=== PATIENT | male | born 1970 | race Caucasian/White ===

== ENCOUNTER 2017-11-02 19:01 | Emergency (ER) | payer OTHER ==
[2017-11-02] MEDS ORDERED: Oxycodone/Acetaminophen 5/325 mg Tab PO STA (19:31)
[2017-11-02] MEDS ORDERED: Oxycodone/Acetaminophen 5/325 mg Tab ONE (19:35)
--- NOTE | 2017-11-02 19:36 | ED PDOC ---
HPI: Trauma/Fall - HPI Time Seen by Provider: 11/02/17 19:26 Chief Complaint (Nursing): Back Pain Chief Complaint (Provider): Left lower lateral rib injury History Per: Patient, EMS History/Exam Limitations: no limitations Onset/Duration Of Symptoms: Mins ([employer]) Additional Complaint(s): 47 year old male presents to the ED via EMS after he slipped in the shower prior to arrival with injury to the left lower lateral ribs. Patient reports pain inspiration to movement but denies SOB. Denies head, neck, or back injury. PMD: none - Fall Fall:Prior To Injury: Slipped Past Medical History Reviewed: Historical Data, Nursing Documentation, Vital Signs Vital Signs: Last Vital Signs Temp 98.2 F 11/02/17 19:05 Pulse 86 11/02/17 19:05 Resp 26 H 11/02/17 19:05 BP 152/110 H 11/02/17 19:05 Pulse Ox 99 11/02/17 19:44 - Medical History PMH: Arthritis (psoriatic arthritis) - Surgical History Surgical History: No Surg Hx - Family History Family History: States: Unknown Family Hx - Home Medications Home Medications: Ambulatory Orders Medication Instructions Recorded traMADol [Ultram] 50 mg PO Q8 #10 tab 11/02/17 - Allergies Allergies/Adverse Reactions: Allergies Allergy/AdvReac Type Severity Reaction Status Date / Time No Known Allergies Allergy Verified 11/02/17 19:05 Review of Systems ROS Statement: Except As Marked, All Systems Reviewed And Found Negative Respiratory: Negative for: Shortness of Breath Musculoskeletal: Positive for: Other (Left lower lateral rib injury). Negative for: Neck Pain (and head injury), Back Pain Physical Exam - Reviewed Nursing Documentation Reviewed: Yes Vital Signs Reviewed: Yes - Physical Exam Appears: Positive for: Non-toxic, No Acute Distress Head Exam: Positive for: ATRAUMATIC, NORMOCEPHALIC Skin: Positive for: Normal Color, Warm, Dry Eye Exam: Positive for: Normal appearance Neck: Positive for: Normal, Painless ROM Cardiovascular/Chest: Positive for: Regular Rate, Rhythm, Other (tenderness to left lower lateral ribs with no ecchymosis). Negative for: Murmur Respiratory: Positive for: Normal Breath Sounds (Equal breath sounds bilaterally ). Negative for: Wheezing, Respiratory Distress Gastrointestinal/Abdominal: Positive for: Normal Exam, Soft. Negative for: Tenderness, Other (ecchymosis) Extremity: Positive for: Normal ROM Neurologic/Psych: Positive for: Alert, Oriented. Negative for: Motor/Sensory Deficits - ECG O2 Sat by Pulse Oximetry: 99 (RA) Pulse Ox Interpretation: Normal Medical Decision Making Medical Decision Making: Initial Plan: --Ribs and chest X-ray --Oxycodone 1 tab PO Scribe Attestation: Documented by Wili Lezama acting as a scribe for Clyde Carrasquillo MD. Provider Scribe Attestation: All medical record entries made by the Scribe were at my direction and personally dictated by me. I have reviewed the chart and agree that the record accurately reflects my personal performance of the history, physical exam, medical decision making, and the department course for this patient. I have also personally directed, reviewed, and agree with the discharge instructions and disposition. Disposition - Clinical Impression Clinical Impression: Rib contusion - Patient ED Disposition Is Patient to be Admitted: No Counseled Patient/Family Regarding: Studies Performed, Diagnosis, Need For Followup, Rx Given - Disposition Referrals: [facility] [Outside] Disposition: Routine/Home Disposition Time: 20:18 Condition: FAIR Prescriptions: traMADol [Ultram] 50 mg PO Q8 #10 tab Instructions: Bruised Rib Forms: [employer] (Yoruba)
[2017-11-02 21:09] VITALS: RESP 18; TEMP 97.7; O2SAT 100
[2017-11-02 23:45] VITALS: BP 155/122; PULSE 75
--- NOTE | 2017-11-03 13:23 | RAD ---
Date of service: 11/02/2017 PROCEDURE: Radiographs of the Chest and Left Ribs. HISTORY: trauma COMPARISON: None.. TECHNIQUE: Frontal radiograph of the chest and multiple oblique radiographs of the left ribs were obtained. FINDINGS: LEFT RIBS: No fracture or focal lesion visualized. LUNGS: Clear. PLEURA: No pneumothorax or pleural fluid. CARDIOVASCULAR: Normal sized heart. No pulmonary vascular congestion. OTHER FINDINGS: None. IMPRESSION: Unremarkable radiographs of the chest and left ribs. No left rib fracture.
== END 2017-11-02 23:49 | disposition home or self-care (01) ==
LOC: H.ER 19:01
DX: S20.219A Contusion of unspecified front wall of thorax, initial encounter (principal); W01.0XXA Fall on same level from slipping, tripping and stumbling without subsequent striking against object, initial encounter; Y93.E1 Activity, personal bathing and showering